=== PATIENT | male | born 2000 | race Caucasian/White ===

== ENCOUNTER 2019-09-17 08:34 | Day surgery (SDC) | payer OTHER, SELFPAY ==
[2019-09-17] VITALS (9 sets, daily range): BP systolic 123–137; BP diastolic 68–79; PULSE 72–82; RESP 12–20; TEMP 36.9–37.6; O2SAT 97–100; BMI 31.2
--- NOTE | ~2019-09-17 | CT_ITS ---
EXAMINATION: CT abdomen pelvis w con INDICATION: Right lower quadrant pain TECHNIQUE: Computed tomographic images of the abdomen and pelvis were obtained after the administrati on of 100 cc of Omnipaque 350 intravenous contrast. The dose-length product (DLP) was 617.33 mGy-cm. Automated exposure control and iterative reconstruction technique were employed. COMPARISON: None available FINDINGS: The lung bases are clear. The heart size is normal. The liver, spleen, pancreas, gallbladde r, and adrenal glands are normal. The kidneys are unremarkable. The dilated appendix measures up to 1 1 mm. There is a moderate amount of edematous stranding of the periappendiceal fat. No abscess or per foration is identified. Mildly enlarged right lower quadrant lymph nodes are likely reactive. There i s a small volume of ascites in the pelvis. There is no free intraperitoneal gas or evidence of bowel obstruction. IMPRESSION: 1. Acute uncomplicated appendicitis. These findings were discussed with Dr. Maria Eugenia Reddy MD in the Emergency Department at 1020 ho urs on 09/17/2019. Reviewed, dictated and finalized at location A. [facility] IMPRESSION: 1. Acute uncomplicated appendicitis. These findings were discussed with Dr. Maria Eugenia Reddy MD in the Emergency Department at 1020 hours on 09/17/2019.
--- NOTE | 2019-09-17 08:49 | ED.ABDPAIN ---
HPI - Abdominal Pain General Chief Complaint: Abdominal Pain Stated Complaint: my appendix hurts Time Seen by Provider: 09/17/19 08:48 Source: patient Mode of arrival: ambulatory Limitations: no limitations History of Present Illness HPI narrative: Pt is a 19 y/o male who presents to the ED with c/o ABD pain that started yesterday at 9PM. Pt states that his ABD pain was generalized last night and this morning it is more prominent in his RLQ. Pt reports nausea and chills, but denies vomiting, sweats, fever, dysuria, or hematuria. Pt states that he had an episode of diarrhea yesterday and he notes that he had a normal BM last night. MD elicited complaint: abdominal pain Onset (ago): hour(s) (12) Location: RLQ Associated symptoms: nausea and chills Related Data Allergies Allergy/AdvReac Type Severity Reaction Status Date / Time No Known Allergies Allergy Verified 09/17/19 10:29 Review of Systems Review of Systems: All systems reviewed & are unremarkable except as noted in HPI and below Constitutional: Constitutional: Reports chills, Denies fever(s) and Denies other (sweats) Gastrointestinal: Gastrointestinal: Reports abdominal pain (RLQ), Reports diarrhea (one episode yesterday), Reports nausea and Denies vomiting Genitourinary: Genitourinary: Denies hematuria and Denies dysuria PMFSH Past Medical History Medical History (Updated 09/17/19 @ 15:40 by Maria Eugenia Reddy MD) ADHD Mononucleosis Obesity Restless leg syndrome Surgical History Surgical History H/O myringotomy Social History Social History Smoking status: Former smoker Comments His PCP is Dr. Hallman Exam Const: General: cooperative, no acute distress and alert Nutritional Appearance: well nourished Orientation/consciousness: patient oriented x3 Limitations: no limitations HENMT: Mouth: Yes lip normal and Yes moist mucous membranes Resp: Effort & Inspection: normal respiratory effort Auscultation: clear to auscultation bilaterally Cardio: Rate: regular rate Rhythm: regular rhythm GI: GI Palp: Yes Soft to palpation and Yes Tenderness to palpation present (GI) (focal RLQ) Auscultation: normal bowel sounds Back/Spine/Pelvis: Back: CVA tenderness (rt) Skin: General skin exam: normal color Neuro: General: patient oriented x3 Cognition (Neuro): normal cognition Speech: normal speech Extrem: General: normal to inspection, full ROM and no clubbing, cyanosis or edema Psych: Mental Status: mental status grossly normal Affect: normal affect Attitude: cooperative Course Course Emergency Course: Patient with findings of acute appendicitis. Patient did not require any pain medication while in the emergency department. Patient started on IV fluids and IV antibiotics. Initial plan was to be admitted to medical floor, awaiting OR availability later in the day, however opening did come up in the OR schedule patient was taken from emergency department to outpatient surgery for appendectomy. Patient and family advised of diagnosis and care plan. Consultations Consultation #1: Discussed case with Dr. Hwang, the general surgeon. He will call the OR to arrange surgery and in the meantime will come to the ED and see the pt. Date: 09/17/19 Time: 10:42 Consultation #2: Dr. Hwang called back and stated that the OR will not be able to get him in today and to admit pt to the hospital Date: 09/17/19 Time: 10:47 Vital Signs Vital signs: Vital Signs Temperature 99.4 F 09/17/19 09:45 Pulse Rate 82 09/17/19 09:45 Respiratory Rate 14 09/17/19 09:45 Blood Pressure 130/76 09/17/19 09:45 Pulse Oximetry 100 09/17/19 09:45 Temperature 99.7 F H 09/17/19 14:27 Pulse Rate 75 09/17/19 15:25 Respiratory Rate 15 09/17/19 15:25 Blood Pressure 131/73 09/17/19 15:25 Pulse Oximetry 97 09/17/19 15:25 MDM - Abdominal Pain L
[2019-09-17 09:55] LABS: Basophils Absolute Auto 0.1 K/mm3 (0.0-0.1); Basophils Percent Auto 0.6 % (0.2-1.2); Eosinophils Absolute Auto 0.1 K/mm3 (0-0.3); Eosinophils Percent Auto 0.5 % (0-4.4); Hematocrit 45.5 % (42.0-52.0); Hemoglobin 15.2 g/dL (14.0-18.0); Immature Granulocyte Absolute 0.04 K/mm3 (0.00-0.031); Immature Granulocyte Percent A 0.3 % (0-0.5); Lymphocytes Absolute Auto 2.46 K/mm3 (0.9-3.2); Lymphocytes Percent Auto 17.8 % (18.3-44.2); Mean Corpuscular HGB Conc 33.4 g/dl (32-36); Mean Corpuscular Hemoglobin 28.7 pg (26-34); Mean Corpuscular Volume 85.8 fl (80-100); Mean Platelet Volume 10.2 fl (7.4-10.4); Monocytes Percent Auto 7.2 % (2.6-8.5); Neutrophils Absolute Auto 10.2 K/mm3 (1.3-6.7); Neutrophils Percent Auto 73.6 % (45.5-73.1); Platelet Count Result 204 k/mm3 (150-375); Red Cell Distribution Width 12.7 % (11.5-14.5); White Blood Count 13.8 K/mm3 (4.5-10.0)
[2019-09-17 10:03] LABS: Blood Urea Nitrogen 15 mg/dL (8-26); Estimated Glomerular Filt Rate > 60
[2019-09-17 10:06] LABS: Alanine Aminotransferase 22 U/L (4-50); Albumin Level 4.6 g/dL (3.5-5.1); Alkaline Phosphatase 62 U/L (38-126); Aspartate Amino Transferase 20 U/L (17-59); Bilirubin,Total 1.1 mg/dL (0.2-1.3); Blood Urea Nitrogen 15 mg/dL (9-20); Calcium 9.7 mg/dL (8.4-10.2); Carbon Dioxide 30 mmol/L (22-30); Chloride 95 mmol/L (98-107); Estimated Glomerular Filt Rate > 60; Glucose 104 mg/dL (75-110); Lipase 47 U/L (23-300); Potassium 3.9 mmol/L (3.4-5.0); Sodium 134 mmol/L (137-145)
[2019-09-17] MEDS: LACTATED RINGERS 1,000 ML 999 ML IV CONT (11:00)
[2019-09-17 11:34] LABS: Add Urine Microscopic? NO; Appearance Urine Clear (Clear); Bilirubin Urine Negative (Negative); Blood Urine Negative (Negative); Color Urine Yellow (Yellow); Glucose Urine UA Negative (Negative); Ketones Urine Negative (Negative); Leukocyte Esterase Ur Negative LEU/UL (Negative); Nitrate Urine Negative (Negative); Protein Urine Negative (Negative); Urobilinogen Urine Negative mg/dL (<2.0)
--- NOTE | 2019-09-17 11:37 | PC.NURSE ---
DR TRUONG STOPPED PT IN THE [facility] TO SPEAK WITH HIM. NOW PT IS GOING TO PREOP BED 11 INSTEAD OF 261.
[2019-09-17 11:40] LABS: Specific Grav Ur 1.048 (1.001-1.035)
--- NOTE | 2019-09-17 11:43 | PM.SD ---
Same Day Admit/Disch: HPI History of Present Illness Chief complaint: acute appendicitis Narrative: Zion Hollins is a 19 year old male who started having abdominal pain last night. This morning when he awakened the pain had moved to the right lower quadrant and was much more severe. He has had nausea but no vomiting. He did not take his temperature. He came to the emergency room was found to have tenderness in the right lower quadrant. He is afebrile. [place] [id number]. CT scan showed a dilated 11 mm appendix with periappendiceal stranding and some edema. He was seen in the emergency room and is now taken to surgery as an outpatient for laparoscopic appendectomy. [facility] Past Medical History Medical History (Updated 09/17/19 @ 13:16 by Dar Pinto MD) ADHD Mononucleosis Obesity Restless leg syndrome Surgical History Surgical History H/O myringotomy Social History Social History Smoking status: Former smoker Same Day Admit/Disch: Med Pre-admit Medications Home Medications Medication Instructions Recorded Confirmed Type hydrocodone-acetaminophen 1 - 2 tablet PO Q6H PRN #7 tablet 09/17/19 Rx ketorolac 10 mg PO Q6H 4 Days #16 tablet 09/17/19 Rx Exam Const: General: comfortable, no acute distress, alert and awake HENMT: Head: normocephalic and atraumatic Mouth: Yes Normal oral and palatal mucosa present Eyes: Conjunctivae: conjunctivae normal Pupils: Equal, round and reactive pupils present EOM: EOMs intact bilaterally Neck: Neck: normal visual inspection, no lymphadenopathy and nontender Resp: Effort & Inspection: normal respiratory effort Auscultation: clear to auscultation bilaterally Cardio: Rate: regular rate Rhythm: regular rhythm Heart sounds: no gallops, no murmurs and no rubs GI: Inspection: normal to inspection, non-distended and no scars GI Palp: Yes Firmness to palpation present (GI), Yes Tenderness to palpation present (GI) ( Entire lower abdomen right side much more tender than the left. ), Yes Guarding due to palpation present (GI), No Hepatomegaly present, No Splenomegaly present, Yes Rebound tenderness present and Yes Other GI palpation findings present ( Exquisite tenderness over McBurney's point) Auscultation: normal bowel sounds Skin: Lesions: no lesions Rashes: no rashes Neuro: General: no focal motor deficits and CN's II-XI intact bilaterally Cranial nerves: Yes Equal, round and reactive pupils present, Yes Bilaterally intact EOM present, Yes facial symmetry and Yes Midline tongue present Speech: normal speech Motor exam (neuro): 5/5 motor strength present throughout and Motor abnormalities not present Extrem: General: no clubbing, cyanosis or edema and edema Psych: Affect: normal affect Thought process: Normal thought process present Insight: Good insight present (Psych) DS: Data Data Completed and Pending Labs on day of discharge: Labs from last 24 hours 09/17/19 09/17/19 09/17/19 11:26 10:02 09:49 WBC RBC Hgb Hct MCV MCH MCHC RDW Plt Count MPV Immature Gran % (Auto) Neut % (Auto) Lymph % (Auto) [place] % (Auto) Eos % (Auto) Baso % (Auto) Lymph # (Auto) [place] # (Auto) Eos # (Auto) Baso # (Auto) Abs Immat Gran (auto) Absolute Neuts (auto) Absolute Nucleated RBC Nucleated RBC % Sodium 134 L Potassium 3.9 Chloride 95 L Carbon Dioxide 30 BUN 15 15 Creatinine 1.00 0.90 Estim Creat Clear Calc Not Reportable Not Reportable Estimated GFR > 60 > 60 Glucose 104 Calcium 9.7 Total Bilirubin 1.1 AST 20 ALT 22 Alkaline Phosphatase 62 Total Protein 8.0 Albumin 4.6 Lipase 47 Urine Color Yellow Urine Appearance Clear Urine pH 7.0 Ur Specific [place] 1.048 H Urine Protein Negative
--- NOTE | 2019-09-17 11:48 | PM.PROC ---
Procedure Note - Detailed Date of procedure: 09/17/19 Pre-op diagnosis: acute appendicitis Post-op diagnosis: same Procedure performed: Laparoscopic appendectomy Description of procedure: The patient was taken to surgery and induced into general anesthesia. The abdomen was prepped and draped. Trocars were placed in the usual fashion using 0.5% Marcaine with epinephrine and applied Medical optical trocars. A 5 mm camera was used. The patient was placed in Trendelenburg with the right side elevated. The appendix was found and was dissected from inflammatory adhesions. It was elevated anteriorly. Dissection was carried out in the mesoappendix. The mesoappendix was cauterized and the appendiceal vessels cauterized for hemostasis. Eventually the base of the appendix was skeletonized. The appendix was ligated at its base with a Vicryl endo-loop. It was amputated just above the ligature and the mucosa of the appendiceal stump was cauterized. The appendix was immediately placed in an Endo-Catch bag and retrieved through the 10 11 left lower quadrant trocar site. We replaced the 10 11 trocar and reviewed the right lower quadrant and areas of dissection. All looked good with no evidence of bleeding or other problems. We evacuated CO2 and removed the trocar sleeves. Skin wounds were closed with subcuticular 4 O Monocryl skin suture. The wounds were dressed with Exofin surgical adhesive. The patient was awakened and taken to recovery in good condition. Sponge and needle counts were correct x2. Anesthesia: GETA and local (0.5% Marcaine with epinephrine) Surgeon: Bradford Hwang MD Brain Wave Technician: Albertina PENN Estimated blood loss (mL): 5 Drains: No Packing: No Pathology: yes (Appendix) Complications: None Condition: stable Disposition: PACU Findings: Acute non perforated appendicitis
[2019-09-17] MEDS: LACTATED RINGERS 1,000 ML 30 ML IV CONT ×2 (12:20→14:27)
--- NOTE | 2019-09-17 12:57 | WPDANESEPPF ---
Anes - Initial Pre Proc Eval Procedure: Operation Date: 09/17/19 13:30 Proposed Procedures p Laparoscopic Appendectomy - Bradford Hwang MD Date/Time: 09/17/19 12:57 Surgeon: Bradford Hwang MD Pre Op Diagnosis: acute appendicitis Patient Data Age: 19 Gender: M Height: 1.7 m Weight: 90.45 kg Last Vital Signs Temp 36.9 C 09/17/19 11:55 Pulse 76 09/17/19 11:55 Resp 18 09/17/19 11:55 BP 123/71 09/17/19 11:55 Pulse Ox 100 09/17/19 11:55 Allergies Allergy/AdvReac Type Severity Reaction Status Date / Time No Known Allergies Allergy Verified 09/17/19 10:29 Home Medications Medication Instructions Recorded Confirmed Type No Home Medications 09/17/19 09/17/19 History Laboratory Tests 09/17/19 09/17/19 09/17/19 09:49 09:49 10:02 WBC 13.8 K/mm3 H K/mm3 (4.5-10.0) RBC 5.30 M/mm3 M/mm3 (4.6-6.20) Hgb 15.2 g/dL g/dL (14.0-18.0) Hct 45.5 % % (42.0-52.0) MCV 85.8 fl fl (80-100) MCH 28.7 pg pg (26-34) MCHC 33.4 g/dl g/dl (32-36) RDW 12.7 % % (11.5-14.5) Plt Count 204 k/mm3 k/mm3 (150-375) MPV 10.2 fl fl (7.4-10.4) Immature Gran % (Auto) 0.3 % % (0-0.5) Neut % (Auto) 73.6 % H % (45.5-73.1) Lymph % (Auto) 17.8 % L % (18.3-44.2) [place] % (Auto) 7.2 % % (2.6-8.5) Eos % (Auto) 0.5 % % (0-4.4) Baso % (Auto) 0.6 % % (0.2-1.2) Lymph # (Auto) 2.46 K/mm3 K/mm3 (0.9-3.2) [place] # (Auto) 1.0 K/mm3 H K/mm3 (0.1-0.6) Eos # (Auto) 0.1 K/mm3 K/mm3 (0-0.3) Baso # (Auto) 0.1 K/mm3 K/mm3 (0.0-0.1) Abs Immat Gran (auto) 0.04 K/mm3 H K/mm3 (0.00-0.031) Absolute Neuts (auto) 10.2 K/mm3 H K/mm3 (1.3-6.7) Absolute Nucleated RBC 0.0 K/mm3 K/mm3 (0.0-0.012) Nucleated RBC % 0.0 % % (0.0-0.2) Sodium 134 mmol/L L mmol/L (137-145) Potassium 3.9 mmol/L mmol/L (3.4-5.0) Chloride 95 mmol/L L mmol/L (98-107) Carbon Dioxide 30 mmol/L mmol/L (22-30) BUN 15 mg/dL mg/dL 15 mg/dL mg/dL (9-20) (8-26) Creatinine 0.90 mg/dL mg/dL 1.00 mg/dL mg/dL (0.7-1.3) (0.8-1.5) Estim Creat Clear Calc Not Reportable Not Reportable Estimated GFR > 60 > 60 (59 - ) (59 - ) Glucose 104 mg/dL mg/dL (75-110) Calcium 9.7 mg/dL mg/dL (8.4-10.2) Total Bilirubin 1.1 mg/dL mg/dL (0.2-1.3) AST 20 U/L U/L (17-59) ALT 22 U/L U/L (4-50) Alkaline Phosphatase 62 U/L U/L (38-126) Total Protein 8.0 g/dL g/dL (6.3-8.2) Albumin 4.6 g/dL g/dL (3.5-5.1) Lipase 47 U/L U/L (23-300) Urine Color Urine Appearance Urine pH Ur Specific [place] Urine Protein Urine Glucose (UA) Urine Ketones Ur Blood (Man) Urine Nitrate Urine Bilirubin Urine Urobilinogen Leukocyte Esterase Rfl 09/17/19 11:26 WBC RBC Hgb Hct MCV MCH MCHC RDW Plt Count MPV Immature Gran % (Auto) Neut % (Auto) Lymph % (Auto) [place] % (Auto) Eos % (Auto) Baso % (Auto) Lymph # (Auto) [place] # (Auto) Eos # (Auto) Baso # (Auto) Abs Immat Gran (auto) Absolute Neuts (auto) Absolute Nucleated RBC Nucleated RBC % Sodium Potassium Chloride Carbon Dioxide BUN Creatinine Estim Creat Clear Calc Estimated GFR Glucose Calcium Total Bilirubin AST ALT Alkaline Phosphatase Total Protein Albumin Lipase Urine Color Yellow (Yellow)
[2019-09-17] MEDS: BUPIVACAINE/EPINEPHRINE 0.5% 30 ML VIAL INFILTRATE (14:06)
[2019-09-17] MEDS: KETOROLAC 30 MG/ML VIAL (*BKC) IV PUSH (14:09)
== END 2019-09-17 17:03 | disposition home or self-care (01) ==
LOC: ANHED 10:48 → ANH2MED 10:59 → ANHSURGERY 12:02
PROVIDERS: Emergency Provider Emergency Medicine; Visit Provider Surgery
PROC: 0DTJ4ZZ Resection of Appendix, Percutaneous Endoscopic Approach (ICD-10-PCS; CPT 44970; principal; 2019-09-17 13:30)
DX: K35.30 Acute appendicitis with localized peritonitis, without perforation or gangrene (principal); F90.9 Attention-deficit hyperactivity disorder, unspecified type; G25.81 Restless legs syndrome; Z87.891 Personal history of nicotine dependence
CPT/HCPCS: 44970; 36415; 74177; 80053; 81003; 83690; 85025; 88304; 96374; 99285; A9270; J1100; J1885; J2250; J2405; J2543; J2704; J2710; J3010; J7030; J7120; Q9967

== ENCOUNTER 2022-11-04 14:03 | Emergency (ER) | payer OTHER, SELFPAY ==
[2022-11-04 14:12] VITALS: BP 149/88; PULSE 92; RESP 16; TEMP 37.7; O2SAT 99
--- NOTE | 2022-11-04 14:22 | ED.URI ---
HPI - URI/Sore Throat General Chief Complaint: Upper Respiratory Infection Stated Complaint: Sinus/Ears Time Seen by Provider: 11/04/22 14:22 Source: patient and RN notes reviewed Mode of arrival: ambulatory Limitations: no limitations History of Present Illness HPI Narrative: 22-year-old male presented for complaint headache, body aches, sinus pressure/congestion, cough, and bilateral ear pressure. Onset 4 days. Taking Tylenol and cold medication for symptoms. Denies sick contacts. Denies shortness of breath, wheezing, nausea, vomiting, diarrhea, fevers or chills. MD elicited complaint: cough Related Data Allergies Allergy/AdvReac Type Severity Reaction Status Date / Time No Known Drug Allergies Allergy Unknown NONE Verified 11/04/22 14:05 SEASONAL ALLERGIES Allergy Mild Unknown Uncoded 11/04/22 14:05 Review of Systems Review of Systems: CONSTITUTIONAL: Endorses malaise, denies chills, sweats, fever EYES: Denies visual changes, redness, or discharge ENT: Reports rhinorrhea, congestion, sinus pain, otalgia, sore throat CARDIOVASCULAR: Denies chest pain, palpitations, edema RESPIRATORY: Reports cough, post nasal drainage. Denies dyspnea GASTROINTESTINAL: Denies abdominal pain, nausea, vomiting, diarrhea SKIN: Denies rash or itching MUSCULOSKELETAL: Endorses myalgia NEUROLOGIC: Endorses headache PMFSH Past Medical History Medical History Acute appendicitis with localized peritonitis (09/16/19) lap appy 09/17/19 ADHD COVID Mononucleosis Restless leg syndrome Surgical History Surgical History H/O myringotomy S/P laparoscopic appendectomy 09.17.19 Family History Family History Grandparent Diabetes mellitus Family history of cardiovascular disease Family history of aortic aneurysm Social History Social History Social History: Former cigarette smoker, currently smoking a vape. Smoking status: Current every day smoker Tobacco type: e-cigarettes/vaping Alcohol intake: current Substance use type: marijuana Lack of Transportation: No Lack of Food: Never True Current Housing: I Have Housing Concerned About Future Housing: No Difficulty Paying Gas/Electric Bills: No Difficulty Paying for Meds: No Currently Unemployed: No Education: High School Diploma/GED Difficulty w/ Childcare or Family Care: No Exam Narrative: GENERAL: mildly Ill-appearing, nontoxic EYES: PERRLA, conjunctivae clear ENT: Mucous membranes moist. TMs erythematous with dull light reflex bilaterally; no tragal tenderness. Oropharynx erythematous without lesions or exudate, no drooling, no hoarseness, no trismus, uvula midline. No tripod positioning, muffled voice, soft palate or pharyngeal wall bulging NECK: Supple. No lymphadenopathy CHEST: Clear to auscultation, breath sounds equal. No wheezing, rhonchi, rales, or stridor. No respiratory distress, speaks in full sentences. HEART: Regular rate and rhythm. No murmur heard. SKIN: Warm, dry, no rash. NEURO: Alert and oriented x3. PSYCH: Normal mood and affect Course Course Emergency Course: Patient is aware of diagnosis, understands and agrees to treatment plan. Anticipatory guidance given. Patient agrees to follow-up as directed and is aware of reasons to seek care at the emergency department. Portions of this record may have been created with voice recognition software Level of Care: Express Care Visit Vital Signs Vital signs: Vital Signs Temperature 99.8 F H 11/04/22 14:12 Pulse Rate 92 11/04/22 14:12 Respiratory Rate 16 11/04/22 14:12 Blood Pressure 149/88 H 11/04/22 14:12 Pulse Oximetry 99 11/04/22 14:12 Oxygen Delivery Room Air 11/04/22 14:12 Temperature 99.8 F H 11/04/22 14:12 Pulse Rate 92
== END 2022-11-04 15:00 | disposition home or self-care (01) ==
PROVIDERS: Emergency Provider Nurse Practitioner Family; PCP Family Medicine
DX: J06.9 Acute upper respiratory infection, unspecified (principal); H65.03 Acute serous otitis media, bilateral; Z20.822 Contact with and (suspected) exposure to COVID-19
CPT/HCPCS: 87081; 87426; 87880; 99213; C9803; G0463

== ENCOUNTER 2023-12-15 13:00 | Emergency (ER) | payer OTHER, SELFPAY ==
[2023-12-15 13:18] VITALS: BP 154/84; PULSE 88; RESP 14; TEMP 36.5; O2SAT 98
--- NOTE | 2023-12-15 13:23 | ED.URI ---
HPI - URI/Sore Throat General Chief Complaint: Upper Respiratory Infection Stated Complaint: SOB,cough,left hand tingling Time Seen by Provider: 12/15/23 13:48 Source: patient and RN notes reviewed Mode of arrival: ambulatory Limitations: no limitations History of Present Illness HPI Narrative: 23-year-old male presents with concern of for cough that started on Tuesday. Reports cough has been getting worse, making him feel dizzy with coughing fits. He reports body aches, denies fever. He has not taken any cold medicines for his symptoms MD elicited complaint: cough Related Data Allergies Allergy/AdvReac Type Severity Reaction Status Date / Time No Known Drug Allergies Allergy Unknown NONE Verified 12/15/23 13:32 Review of Systems Review of Systems: CONSTITUTIONAL: Reports malaise, chills, sweats. Denies fever. EYES: Denies visual changes, redness, or discharge. ENT: Denies rhinorrhea, congestion, sinus pain, otalgia and sore throat. CARDIOVASCULAR: Denies chest pain, palpitations, or edema. RESPIRATORY: Reports cough, dyspnea. GASTROINTESTINAL: Denies abdominal pain, nausea, vomiting, diarrhea SKIN: Denies rash or itching. MUSCULOSKELETAL: Reports myalgia. NEUROLOGIC: Denies headache. All systems reviewed & are unremarkable except as noted in HPI and below PMFSH Past Medical History Medical History Acute appendicitis with localized peritonitis (09/16/19) lap appy 09/17/19 ADHD COVID Mononucleosis Restless leg syndrome Surgical History Surgical History H/O myringotomy S/P laparoscopic appendectomy 09.17.19 Family History Family History Grandparent Diabetes mellitus Family history of cardiovascular disease Family history of aortic aneurysm Social History Social History Social History: Former cigarette smoker, currently smoking a vape. Smoking status: Current every day smoker Tobacco type: e-cigarettes/vaping Alcohol intake: current Substance use type: marijuana Lack of Transportation: No Lack of Food: Never True Current Housing: I Have Housing Concerned About Future Housing: No Difficulty Paying Gas/Electric Bills: No Difficulty Paying for Meds: No Currently Unemployed: No Education: High School Diploma/GED Difficulty w/ Childcare or Family Care: No Comments At time of signature, agree with nursing past medical, surgical, social and family history. There is no relevant family history pertinent to the presenting complaint Exam Narrative: GENERAL: Well-appearing, well-nourished, and in no acute distress. HEAD: Normocephalic EYES: PERRLA, conjunctivae clear ENT: Nares clear. Mucous membranes moist. TM pearly gonzalez with sharp light reflex bilaterally; no tragal tenderness. Oropharynx not erythematous without lesions. Tonsils not enlarged and without exudate, no drooling, no hoarseness, no trismus, uvula midline. NECK: Supple. No lymphadenopathy CHEST: Clear to auscultation, breath sounds equal. No wheezing, rhonchi, rales, or stridor. No respiratory distress, speaks in full sentences. HEART: Regular rate and rhythm. No murmur heard. SKIN: Warm, dry, no rash. NEURO: Alert and oriented x3. PSYCH: Normal mood and affect Course Course Emergency Course: Patient is aware of diagnosis, understands and agrees to treatment plan. Anticipatory guidance given. Patient agrees to follow-up as directed and is aware of reasons to seek care at the emergency department. Portions of this record may have been created with voice recognition software Level of Care: Express Care Visit Vital Signs Vital signs: Vital Signs Temperature 97.7 F 12/15/23 13:18 Pulse Rate 88 12/15/23 13:18 Respiratory Rate 14 12/15/23 13:18 Blood Pressure 154/84 H 12/14/
== END 2023-12-15 13:55 | disposition home or self-care (01) ==
PROVIDERS: Emergency Provider Nurse Practitioner; PCP Family Medicine
DX: J40 Bronchitis, not specified as acute or chronic (principal); Z20.822 Contact with and (suspected) exposure to COVID-19; F17.290 Nicotine dependence, other tobacco product, uncomplicated; F12.90 Cannabis use, unspecified, uncomplicated; G25.81 Restless legs syndrome; Z86.16 Personal history of COVID-19
CPT/HCPCS: 87426; 87804; 99213; G0463